=== PATIENT | female | born 1970 | race Caucasian/White ===

== ENCOUNTER 2017-01-09 11:57 | Emergency (ER) | payer SELFPAY ==
[~2017-01-09] VITALS: Ht 165.1 cm; Wt 60.0 kg
[2017-01-09 12:04] VITALS: BP 121/56
== END 2017-01-09 15:35 | disposition home or self-care (01) ==
LOC: ER 14:35
DX: S83.91XA Sprain of unspecified site of right knee, initial encounter (principal); S53.401A Unspecified sprain of right elbow, initial encounter; Z98.890 Other specified postprocedural states; W01.0XXA Fall on same level from slipping, tripping and stumbling without subsequent striking against object, initial encounter; Y93.89 Activity, other specified; Y92.512 Supermarket, store or market as the place of occurrence of the external cause
CPT/HCPCS: 73080; 73562; 81025; 99284